=== PATIENT | male | born 1985 | race Caucasian/White ===

== ENCOUNTER 2021-11-22 19:47 | Emergency (ER) | payer OTHER ==
[~2021-11-22 19:47] MED LIST: DIPH25CA83 PO; DOCU250C14 PO; FERR325T23 PO; LORA2TAB95 PO; MAGN250T29 PO; OMEP40CA20 PO; ONDA8TAB6 PO; OXYC1TAB5 PO; POTA8CAP20 PO
== END 2021-11-22 20:55 | disposition left against medical advice (07) ==
LOC: ER 19:47
DX: Z53.21 Procedure and treatment not carried out due to patient leaving prior to being seen by health care provider (principal)